=== PATIENT | female | born 1965 | race Caucasian/White ===

== ENCOUNTER 2016-12-27 09:29 | Day surgery (SDC) | payer BC ==
--- NOTE | ~2016-12-27 | EGD ---
EGD REPORT [facility] [address] [address] NAME: MEGHAN SANDERS : [birth year] STATUS : REG [facility] [place] PAT#: [id number] AGE: 51 ADM/REG DATE : 12/27/16 MR#: [id number] REPORT SERV DATE: 12/27/16 DICTATED BY: ZACHARY DORSEY III DATE: 12/27/16 REPORT STATUS : Draft TRANSCRIBED BY: [facility] DATE: 12/27/16 Endoscopy Center Patient Name: Meghan Sanders Date of : 1965 Attending MD: ZACHARY DORSEY III, MD Procedure Date No Time: 12/27/2016 Procedure: Upper GI endoscopy Indications: Heartburn Referring MD: BETH SCOTT MD Medicines: Propofol per Anesthesia Complications: No immediate complications. Procedure: Pre-Anesthesia Assessment: - ASA Grade Assessment: II - A patient with mild systemic disease. After obtaining informed consent, the endoscope was passed under direct vision. Throughout the procedure, the patient's blood pressure, pulse, and oxygen saturations were monitored continuously. The GIF [id number] was introduced through the mouth, and advanced to the third part of duodenum. The upper GI endoscopy was accomplished with ease. The patient tolerated the procedure well. Findings: The examined esophagus was normal. A small hiatus hernia was present. A few medium sessile polyps with no bleeding and no stigmata of recent bleeding were found in the gastric body. Biopsies were taken with a cold forceps for histology. The examined duodenum was normal. The BROOKS capsule with delivery system was introduced through the mouth and advanced into the esophagus, such that the BROOKS pH capsule was positioned 32 cm from the incisors, which was 6 cm proximal to the EG junction. The BROOKS pH capsule was then deployed and attached to the esophageal mucosa. The delivery system was then withdrawn. Endoscopy was utilized for probe placement and diagnostic evaluation. Impression: - Normal esophagus. - Hiatus hernia. - A few gastric polyps. Biopsied. - Normal examined duodenum. - The BROOKS pH capsule was deployed. Recommendation: - Patient has a contact number available for emergencies. The signs and symptoms of potential delayed EGD REPORT [address] [address] NAME: MEGHAN SANDERS : [birth year] STATUS : REG [facility] [place] PAT#: [id number] AGE: 51 ADM/REG DATE : 12/27/16 MR#: [id number] REPORT SERV DATE: 12/27/16 DICTATED BY: ZACHARY DORSEY III DATE: 12/27/16 REPORT STATUS : Draft TRANSCRIBED BY: [employer] DATE: 12/27/16 complications were discussed with the patient. Return to normal activities tomorrow. Written discharge instructions were provided to the patient. - Discharge patient to home. - Follow an antireflux regimen. - Continue present medications. - Await pathology results. Procedure Code(s): --- Professional --- 25484, Esophagogastroduodenoscopy, flexible, transoral; with biopsy, single or multiple Diagnosis Code(s): --- Professional --- K44.9, Diaphragmatic hernia without obstruction or gangrene K31.7, Polyp of stomach and duodenum R12, Heartburn CPT copyright 2013 [employer]. All rights reserved. The codes documented in this report are preliminary and upon cover cutter machine review may be revised to meet current compliance requirements. ZACHARY DORSEY III, MD 12/27/2016 11:24 AM This report has been signed electronically. Number of Addenda: 0 Note Initiated On: 12/27/2016 11:06 AM Scope Withdrawal Time 0 hours 0 minutes 0 seconds [address] [place] [id number]
[~2016-12-27 09:29] MED LIST: MINIVELLE1 EAC1 TOP; PROTONIX PO; VITAMIN D31000 UNIT PO; [UNRECOGNIZED DRUG - OTHER] V
== END 2016-12-27 23:59 | disposition home or self-care (01) ==
LOC: DMU 09:29
PROVIDERS: Internal Medicine Gastroenterology
PROC: 0DB68ZZ Excision of Stomach, Via Natural or Artificial Opening Endoscopic (ICD-10-PCS; principal; 2016-12-27 10:30)
PROC: 0DJ07ZZ Inspection of Upper Intestinal Tract, Via Natural or Artificial Opening (ICD-10-PCS; 2016-12-27 10:30)
DX: K31.7 Polyp of stomach and duodenum (principal); K44.9 Diaphragmatic hernia without obstruction or gangrene; R12 Heartburn; M85.80 Other specified disorders of bone density and structure, unspecified site; Z98.890 Other specified postprocedural states; Z90.710 Acquired absence of both cervix and uterus; F41.9 Anxiety disorder, unspecified; E04.1 Nontoxic single thyroid nodule; E16.2 Hypoglycemia, unspecified; K21.9 Gastro-esophageal reflux disease without esophagitis; K64.9 Unspecified hemorrhoids; Z79.899 Other long term (current) drug therapy
CPT/HCPCS: 88305; 91035